=== PATIENT | male | born 1965 | race Caucasian/White ===

== ENCOUNTER 2017-06-27 11:16 | Emergency (ER) | payer BC ==
[2017-06-27] MEDS ORDERED: NS 0.9% 1000 ML* 2,000 ML IV ONE (11:30)
--- NOTE | 2017-06-27 11:45 | UC ---
Rafael Murillo Angela, scribed for Fco Taylor MD on 06/27/17 at 1130 . General HPI - HPI Summary HPI Summary: This pt is a 52 y.o male presenting to [facility] c/o dizziness, weakness, chills today. Pt reports he had a headache yesterday and was not feeling well. Today pt notes he was cold in the morning and felt like passing out. He denies chest pain, SOB, vomiting, urinary frequency, trauma, falls, cough, abd pain. Pt notes a PMHx of diabetes since 2006. - History of Current Complaint Stated Complaint: WEAK NAUSEA DIZZY DIABETIC Hx Obtained From: Patient Onset/Duration: Gradual Onset Timing: Constant Associated Signs & Symptoms: Positive: Dizziness, Headache, Nausea, Other - Chills. Negative: Back Pain, Confusion, Cough, Chest Pain, Fever - s, Palpitations, SOB - Allergy/Home Medications Allergies/Adverse Reactions: Allergies Allergy/AdvReac Type Severity Reaction Status Date / Time No Known Allergies Allergy Verified 06/27/17 11:41 PMH/Surg Hx/FS Hx/Imm Hx Endocrine History: Diabetes - since 2006 Other Cardiovascular History: DENIES: Cardiac disease - Family History Known Family History: Positive: Diabetes Negative: Hypertension - Social History Alcohol Use: Rare Substance Use Type: None Smoking Status (MU): Never Smoked Tobacco Review of Systems Constitutional: Chills Skin: Negative Eyes: Negative ENT: Negative Respiratory: Negative Cardiovascular: Negative Gastrointestinal: Negative Genitourinary: Negative Neurovascular: Negative Musculoskeletal: Negative Neurological: Headache, Weakness, Other - Dizziness All Other Systems Reviewed And Are Negative: Yes Physical Exam Triage Information Reviewed: Yes Vital Signs Reviewed: Yes - Additional Comments The patient is well-nourished in mild acute distress. The skin is warm. Pt is diaphoretic and pale. HEENT: The head is normocephalic and atraumatic. The pupils are equal and reactive. The conjunctivae are clear and without drainage. Nares are patent and without drainage. Mouth reveals dry mucous membranes and the throat is without erythema and exudate. The external ears are intact. The ear canals are patent and without drainage. The tympanic membranes are intact. Pt has a fruity breath smell. Neck is supple with full range of motion and non-tender. Respiratory: Chest is non-tender. Lungs are clear to auscultation and breath sounds are symmetrical and equal. Cardiovascular: Hear is regular rate and rhythm. There is no murmur or rub auscultated. There is no peripheral edema and pulses are symmetrical and equal. Abdomen: The abdomen is soft and non-tender. Musculoskeletal: There is no back pain noted. Extremities are non-tender with full range of motion. There is good capillary refill. There is no peripheral edema or calf tenderness elicited. Neurological: Patient is alert and oriented to person, place and time. The patient has symmetrical motor strength in all four extremities. Psychiatric: The patient has an appropriate affect and does not exhibit any anxiety or depression. Diagnostics - EKG Cardiac Rate: NL - 93 bpm Cardiac Rhythm: Other Rhythm: New - Q waves III and avF. No STEMI. Course/Dx - Differential Dx - Multi-Symptom Differential Diagnoses: Cardiac Ischemia, Metabolic Abnormality, Urinary Tract Infection, Other - DKA, dehydration Provider Diagnoses: Weakness. Hyperglycemia Discharge - Discharge Plan Condition: Stable Disposition: ADMITTED TO [facility] Referrals: Wei Zee MD [Medical Doctor] - The documentation as recorded by the Rafael fernández Angela accurately reflects the service I personally performed and the decisions made by me, Fco Taylor MD.
[2017-06-27 11:48] VITALS: BP 141/81
== END 2017-06-27 11:48 | disposition short-term general hospital (02) ==
LOC: UCEAST 11:16
DX: R53.1 Weakness (principal); E11.65 Type 2 diabetes mellitus with hyperglycemia; R42 Dizziness and giddiness; R51 Headache; R11.0 Nausea
CPT/HCPCS: 93005; 96360; 99213; G0463

== ENCOUNTER → 2017-06-27 12:12 | Emergency (ER) | payer BC ==
[~2017-06-27 12:12] MED LIST: Acetaminophen TAB* 325 MG PO ONE; NS 0.9% 1000 ML*IV.FLUID IV ONE; Ondansetron INJ* 2 MG/ML VIAL IV ONE; Vancomycin(*) 1,000 MG ADVAN IVPB ONE; Vancomycin(*) 1,000 MG VIAL IVPB SCH; Vancomycin(*) 2,000 MG in NS 0.9% 500 ML BAG* 500 ML IVPB ONE
[2017-06-27 12:45] LABS: Hematocrit 45 % (42-52); Hemoglobin 15.2 g/dl (14.0-18.0); Mean Corpuscular HGB Conc 34 g/dl (31-36); Mean Corpuscular Hemoglobin 30 pg (27-31); Mean Corpuscular Volume 87 fL (80-94); Mean Platelet Volume 9 um3 (7.4-10.4); Red Blood Count 5.12 10^6/ul (4.0-5.4); Red Cell Distribution Width 14 % (10.5-15); White Blood Count 11.5 10^3/ul (3.5-10.8)
[2017-06-27 12:46] LABS: Add Diff/Slide Review? Slide Review Added; Comments Flag Yes
[2017-06-27 13:04] LABS: Albumin 4.2 g/dL (3.2-5.2); BUN/Creatinine Ratio 19.1 (8-20); Calcium 9.2 mg/dL (8.6-10.3); EGFR African American 116.4 (>60); EGFR Non-African American 90.5 (>60); Globulin 2.7 g/dL (2-4); Total Bilirubin 0.9 mg/dL (0.2-1.0); Total Protein 6.9 g/dL (6.4-8.9)
--- NOTE | 2017-06-27 13:22 | RAD ---
HISTORY: Scrotal swelling and tenderness COMPARISONS: None TECHNIQUE: Multiple transverse and longitudinal ultrasound images were obtained of the scrotum, using grayscale, color Doppler, and spectral Doppler imaging. FINDINGS: RIGHT: RIGHT TESTICLE: The right testicle measures 4.5 x 2.7 x 3.3 cm. The right testicle is homogeneous in echotexture, without testicular parenchymal mass. Normal arterial and venous waveforms are identified within the right testicle on spectral Doppler imaging. RIGHT EPIDIDYMIS: The right epididymis measures 2 cm at the head. There is a 0.5 cm epididymal head cyst. RIGHT SCROTUM: There is no hydrocele or varicocele. LEFT: LEFT TESTICLE: The left testicle measures 4.8 x 2.3 x 2.9 cm. The left testicle is homogeneous in echotexture, without testicular parenchymal mass. Normal arterial and venous waveforms are identified within the left testicle on spectral Doppler imaging. LEFT EPIDIDYMIS: The left epididymis measures 1.4 cm at the head. There is a 0.4 cm epididymal head cyst. LEFT SCROTUM: There is focal thickening of left scrotum with increased vascularity measuring up to 2.3 cm in size along the inferior scrotum. OTHER: None IMPRESSION: 1. FOCAL SCROTAL WALL THICKENING ON THE LEFT. THE DIFFERENTIAL INCLUDES CELLULITIS. 2. NO LOCULATED FLUID COLLECTION TO SUGGEST ABSCESS. 3. NO TESTICULAR PARENCHYMAL MASS.
--- NOTE | 2017-06-27 13:38 | RAD ---
INDICATION: Fever. COMPARISON: There are no prior studies available for comparison. TECHNIQUE: Dual-energy PA and lateral views of the chest were obtained. FINDINGS: The heart is within normal limits in size. Mediastinal and hilar contours appear within normal limits. The lungs are underinflated. There are linear densities at the right lung base most consistent with subsegmental atelectasis. There is flattening of the diaphragms suggestive of chronic obstructive pulmonary disease. No pleural effusion is seen. IMPRESSION: NO EVIDENCE FOR ACUTE FINDING.
--- NOTE | 2017-06-27 13:45 | RAD ---
HISTORY: Headache, dizziness, nausea, COMPARISONS: None TECHNIQUE: Multiple contiguous axial CT scans were obtained of the head without intravenous contrast. FINDINGS: HEMORRHAGE/INFARCT: There is no hemorrhage or acute infarct. MASSES/SHIFT: There is no mass or shift. EXTRA-AXIAL SPACES: There are no extra-axial fluid collections. SULCI AND VENTRICLES: The sulci and ventricles are normal in size and position for the patient's stated age. CEREBRUM: There are no focal parenchymal abnormalities. BRAINSTEM: There are no focal parenchymal abnormalities. CEREBELLUM: There are no focal parenchymal abnormalities. VESSELS: The vessels are grossly normal. PARANASAL SINUSES: The paranasal sinuses are clear. ORBITS: The orbits are unremarkable. BONES AND SOFT TISSUE: No bone or soft tissue abnormalities are noted. OTHER: None IMPRESSION: NO ACUTE INTRACRANIAL PATHOLOGY.
[2017-06-27 14:10] LABS: Urine Bilirubin Negative (Negative); Urine Glucose 3+(>=500 mg/dL) (Negative); Urine Nitrite Negative (Negative)
[2017-06-27 15:54] VITALS: BP 115/65
--- NOTE | 2017-06-27 20:00 | ED ---
David Murillo Benjamin, scribed for Babatunde Drkae MD on 06/27/17 at 1232 . Dizziness - HPI Summary HPI Summary: 52yo male c/o weakness, nausea, and 5 out of 10 scale diffuse VINES that started last night that started to progressively worsened since this morning. Pt got up with dizziness and called his at work reporting his symptoms and that he feels like he is going to pass out. When got home from work, pt appeared to be unresponsive and less conscious. Pt then went to and was brought to ED subsequently. No change in vision, hearing, or swallowing. Pt also denies any focal weakness, urinary symptoms, or URI like symptoms. Pt does report a rash in his groin for a week that is now itchy. Pt states his VINES is better now, and at onset, he had a severe pounding VINES, but not abrupt in onset and not different than prior headaches he has had throughout his life. The patient states that the headache is nothing compared to the headaches he has had in the earlier years of his life. He has no photophobia at all, and no neck pain or neck stiffness.. Pt admits getting similar VINES every once in a while. Pt is diabetic. - History Of Current Complaint Chief Complaint: EDDizziness Stated Complaint: WEAKNESS COMMING FROM [facility] Time Seen by Provider: 06/27/17 12:18 Hx Obtained From: Patient, Family/Pressure Sealer And Tester - Onset/Duration: Still Present, Gradually Timing: Constant Severity Initially: Moderate Severity Currently: Mild Character: Weak, Dizzy Aggravating Factor(s): Nothing Alleviating Factor(s): Nothing Associated Signs And Symptoms: Positive: Nausea. Negative: Vomiting, Diarrhea, Chest Pain, SOB, Palpitations, Slurred Speech - Allergies/Home Medications Allergies/Adverse Reactions: Allergies Allergy/AdvReac Type Severity Reaction Status Date / Time No Known Allergies Allergy Verified 06/27/17 11:41 Home Medications: Home Medications Aspirin EC Low Dose* [Ecotrin EC Low Dose 81 MG*] 81 mg PO DAILY 06/27/17 [ History Confirmed 06/27/17] PMH/Surg Hx/FS Hx/Imm Hx Previously Healthy: Yes Endocrine/Hematology History: Reports: Hx Diabetes - Surgical History Surgery Procedure, Year, and Place: Left foot Infectious Disease History: No Infectious Disease History: Denies: Traveled Outside the [place] in Last 30 Days - q - Family History Known Family History: Positive: Diabetes Negative: Hypertension - Social History Occupation: Employed Full-time Lives: With Family Alcohol Use: Occasionally Substance Use Type: Reports: None Substance Use Comment - Amount & Last Used: rare Smoking Status (MU): Never Smoked Tobacco Review of Systems Positive: Chills. Negative: Fever Eyes: Negative ENT: Negative Negative: Palpitations, Chest Pain Respiratory: Negative Negative: Shortness Of Breath, Cough Positive: Nausea. Negative: Abdominal Pain Genitourinary: Negative Musculoskeletal: Negative Positive: Rash - in the groin area Neurological: Other - dizziness Positive: Headache, Weakness, Syncope - near Psychological: Normal All Other Systems Reviewed And Are Negative: Yes Physical Exam Triage Information Reviewed: Yes Vital Signs On Initial Exam: Initial Vitals Temp Pulse Resp BP Pulse Ox 100.7 F 102 16 129/91 97 06/27/17 12:14 06/27/17 12:14 06/27/17 12:14 06/27/17 12:14 06/27/17 12:14 Vital Signs Reviewed: Yes Appearance: Positive: Well-Appearing, No Pain Distress, Obese Skin: Positive: Warm, Skin Color Reflects Adequate Perfusion, Other - NO rash, and the scrotal area with without rash, but a lump present left side that is adherent to the skin of scrotum and this is the area the patient mentions in the history. Head/Face: Positive: Normal Head/Face Inspection Eyes: Positive: EOMI, QUINTON, Other: - no photophobia ENT: Positive: Normal ENT inspection Neck: Positive: Supple, Nontender. Negative: Nuchal Rigidity Respiratory/Lung Sounds: Positive: Clear to Auscultation, Breath Sounds Present Cardiovascular: Positive: RRR. Negative: Murmur Abdomen Description: Positive: Nontender, No Organomegaly Male Genital Exam: Positive: scrotum tenderness (L) - mild with induration, but no fluid collection, there, other - there is a small lump in the left of the scrotum that appears on palpation to the part of the scrotal skin, no fluctuance , no drainage. About 1 cm in diameter.. Negative: testicular tenderness (R), testicular tenderness (L) Musculoskeletal: Positive: Strength/ROM Intact, Other - no joint effusion. He walks well Neurological: Positive: Sensory/Motor Intact, Alert, Oriented to Person Place, Time, CN Intact II-III, Finger to Nose - smooth, Speech Normal, Other - The patient speaks in full clear and well organized sentences without any confusion.. Negative: Disoriented Psychiatric: Positive: Normal - Andrea Coma Scale Best Eye Response: 4 - Spontaneous Best Motor Response: 6 - Obeys Commands Best Verbal Response: 5 - Oriented Coma Scale Total: 15 Diagnostics - Vital Signs Vital Signs Temp Pulse Resp BP Pulse Ox 06/27/17 12:14 100.7 F 102 16 129/91 97 - Laboratory Result Diagrams: 06/27/17 12:30 06/27/17 12:30 Lab Statement: Any lab studies that have been ordered have been reviewed, and results considered in the medical decision making process. - Radiology CXR Xray Interpretation: No Acute Changes Radiology Interpretation Completed By: Radiologist - CT Brain CT CT Interpretation: No Acute Changes CT Interpretation Completed By: Radiologist - Ultrasound No standard instances Ultrasound Interpretation: Positive (See Comments) - US TESTICULAR IMPRESSION: 1. FOCAL SCROTAL WALL THICKENING ON THE LEFT. THE DIFFERENTIAL INCLUDES CELLULITIS. 2. NO LOCULATED FLUID COLLECTION TO SUGGEST ABSCESS. 3. NO TESTICULAR PARENCHYMAL MASS. Ultrasound Interpretation Completed By: Radiologist Re-Evaluation - Re-Evaluation First Eval Re-Evaluation Time: 13:50 Change: Improved - Pt states that he is feeling much better after receiveing tylenol and zofran. No longer having VINES. Pt is asking for something to eat. Second Eval Re-Evaluation Time: 15:10 Change: Improved - Pt states that he feels much better after eating and drinking. No longer having VINES. Dizzy Course/Dx - Course Course Of Treatment: 52 yr old male with scrotal cellulitis that is localized at this point. He is non toxic at this point. Labs ok. He has no headache at all after hydration and tylenol, and no other source identified except the scrotal skin. He has no no gangrene, and no abscess or drainage. Will rx with augmentin and also bactrim. He will be discharged to home to follow up with his PMD. He is walking around the ED and he feels good. He has eaten as well. - Diagnoses Provider Diagnoses: Cellulitis of scrotum, Dehydration Discharge - Discharge Plan Condition: Good Disposition: HOME Prescriptions: Amoxicillin/Clavulanate TAB* [Augmentin TAB 875*] 875 mg PO BID #20 tab Sulfamethox/Trimethoprim DS* [Bactrim DS 800/160 TAB*] 1 tab PO BID #20 tab Patient Education Materials: Cellulitis (ED) Referrals: Casey Hough DO [Doctor of Osteopathy] - 2 Days The documentation as recorded by the marisolibDavid benitez Benjamin accurately reflects the service I personally performed and the decisions made by , Babatunde Drake MD.
== END | disposition home or self-care (01) ==
LOC: ED 12:12
DX: N49.2 Inflammatory disorders of scrotum (principal); E86.0 Dehydration; R68.83 Chills (without fever); R11.0 Nausea; R21 Rash and other nonspecific skin eruption
CPT/HCPCS: 36415; 70450; 71020; 76870; 80053; 81003; 83605; 84484; 85025; 85610; 85730; 87040; 96374; 99283; A9270-GY; J0696; J2405; J3370

== ENCOUNTER 2017-10-31 19:28 | Emergency (ER) | payer BC ==
--- NOTE | 2017-10-31 19:44 | UC ---
UC General HPI - HPI Summary HPI Summary: sensation that heart was beating fast does not get chest pain, primary care Dr. Zee is aware and patient was offered reassurance and no further work up was done- - History of Current Complaint Chief Complaint: UCGeneralIllness Stated Complaint: INCREASED HEART BEAT Time Seen by Provider: 10/31/17 19:36 Hx Obtained From: Patient Onset/Duration: Sudden Onset, Resolved Onset Severity: Moderate Current Severity: None Associated Signs & Symptoms: Positive: Palpitations - Allergy/Home Medications Allergies/Adverse Reactions: Allergies Allergy/AdvReac Type Severity Reaction Status Date / Time No Known Allergies Allergy Verified 10/31/17 19:55 Home Medications: Home Medications Lactase [Lactaid] 3,000 unit PO PRN 10/31/17 [History] Lansoprazole CAP (NF) [Prevacid CAP (NF)] 15 mg PO DAILY 10/31/17 [History Confirmed 10/31/17] PMH/Surg Hx/FS Hx/Imm Hx Previously Healthy: No Endocrine History: Diabetes - Surgical History Surgical History: Yes Surgery Procedure, Year, and Place: Left foot - Family History Known Family History: Positive: Diabetes Negative: Hypertension - Social History Occupation: Employed Full-time Lives: With Family Alcohol Use: Occasionally Substance Use Type: None Substance Use Comment - Amount & Last Used: rare Smoking Status (MU): Never Smoked Tobacco Review of Systems Constitutional: Negative Skin: Negative Eyes: Negative ENT: Negative Respiratory: Negative Cardiovascular: Palpitations Gastrointestinal: Negative Genitourinary: Negative Motor: Negative Neurovascular: Negative Musculoskeletal: Negative Neurological: Negative Psychological: Negative Is Patient Immunocompromised?: No All Other Systems Reviewed And Are Negative: Yes Physical Exam Triage Information Reviewed: Yes Appearance: Well-Appearing, No Pain Distress, Well-Nourished Vital Signs Reviewed: Yes Eye Exam: Normal Eyes: Positive: Conjunctiva Clear ENT Exam: Normal ENT: Positive: Normal ENT inspection, Hearing grossly normal, Pharynx normal, TMs normal, Uvula midline. Negative: Tonsillar swelling, Tonsillar exudate, Trismus, Muffled voice, Hoarse voice, Sinus tenderness Dental Exam: Normal Neck exam: Normal Neck: Positive: Supple, Nontender, No Lymphadenopathy Respiratory Exam: Normal Respiratory: Positive: Chest non-tender, Lungs clear, Normal breath sounds, No respiratory distress, No accessory muscle use Cardiovascular Exam: Normal Cardiovascular: Positive: RRR, No Murmur, Pulses Normal, Brisk Capillary Refill Musculoskeletal Exam: Normal Musculoskeletal: Positive: Strength Intact, ROM Intact, No Edema Neurological Exam: Normal Neurological: Positive: Alert, Muscle Tone Normal Psychological Exam: Normal Skin Exam: Normal Diagnostics - EKG Cardiac Rate: NL Cardiac Rhythm: Sinus: Normal Ectopy: None ST Segment: Normal Course/Dx - Course Course Of Treatment: follow with Dr. Hough in next 1-2 weeks---take with him about CArdiac event monitoring return for any concerns or return of irregular beats - Differential Dx - Multi-Symptom Provider Diagnoses: Subjective palpatations Discharge - Discharge Plan Condition: Stable Disposition: HOME Patient Education Materials: Palpitations (ED) Referrals: Casey Hough DO [Primary Care Provider] - 2 Weeks Additional Instructions: Consider Cardiac event monitor or a 30 day monitor
[2017-10-31 19:55] VITALS: BP 115/89
== END 2017-10-31 20:18 | disposition home or self-care (01) ==
LOC: UCEAST 19:28
DX: R00.2 Palpitations (principal); E11.9 Type 2 diabetes mellitus without complications
CPT/HCPCS: 93005; 99211; G0463